=== PATIENT | male | born 1950 | race Caucasian/White ===

== ENCOUNTER → 2017-10-06 16:01 | Outpatient (CLI) | payer MEDICARE, BC | END | disposition home or self-care (01) | LOC: D.MRI 16:01 | DX: M54.5 Low back pain (principal) ==

== ENCOUNTER → 2019-12-08 09:47 | Outpatient (CLI) | payer MEDICARE, BC | END | disposition home or self-care (01) | LOC: D.NM 09:47 | PROVIDERS: ATTEND Family Medicine | DX: E21.3 Hyperparathyroidism, unspecified (principal) ==

== ENCOUNTER → 2020-01-10 13:10 | Outpatient (CLI) | payer MEDICARE, BC | END | disposition home or self-care (01) | LOC: D.US 13:00 | PROVIDERS: ATTEND Surgery | DX: E21.3 Hyperparathyroidism, unspecified (principal) ==

== ENCOUNTER 2020-01-26 06:23 | Day surgery (SDC) | payer MEDICARE, BC ==
[~2020-01-26] VITALS: Ht 182.9 cm; Wt 93.9 kg
[~2020-01-26 06:23] MED LIST: LOSARTAN-HCTZ1 EAC1 PO; TOPROL XL100 MG PO; ZOCOR40 MG PO
[2020-01-26 06:58] LABS: BASOPHILS 0.3 % (0-2); EOSINOPHILS 2.7 % (0-7); HEMATOCRIT 42.4 % (42.0-54.0); HEMOGLOBIN 13.9 g/dL (13.5-17.5); IMMATURE GRANULOCYTES 0.1 % (0-5); LYMPHOCYTES 33.6 % (15-50); MCH 31.6 pg (26.0-34.0); MCHC 32.8 g/dL (31.0-37.0); MCV 96.4 fL (80.0-100.0); MEAN PLATELET VOLUME 9.6 fL (7.4-10.4); MONOCYTES 8.7 % (2-11); NEUTROPHILS 54.6 % (40-80); PLATELET COUNT 219 10x3/uL (130-400); RDW 12.4 % (11.5-14.5); WBC 7.2 10x3/uL (4.8-10.8)
[2020-01-26 07:27] LABS: CALCIUM 10.7 mg/dL (8.5-10.1); CARBON DIOXIDE 27.7 mmol/L (21.0-32.0); CREATININE - SERUM 1.2 mg/dL (0.6-1.3); POTASSIUM - SERUM 3.7 mmol/L (3.5-5.1)
[2020-01-26 08:08] VITALS: BP 156/77; Ht 182.9 cm; Wt 93.9 kg
[2020-01-26] MEDS ORDERED: HYDROCODON-ACE1 EA10 PO (11:05)
--- NOTE | 2020-01-26 13:46 | NUR ---
1235 IV REMOVED AND PRESSURE HELD INSTRUCTIONS GIVEN. NO SWELLING TO NECK. PAIN EASING
--- NOTE | 2020-01-31 09:49 | OP ---
PATIENT NAME: ABEL FERMIN MEDICAL RECORD: [id number] :46 LOCATION:D[facility] ADMISSION DATE: SURGEON: OLLIE COON MD DATE OF OPERATION: 01/26/2020 PREOPERATIVE DIAGNOSES: 1. Hyperparathyroidism. 2. 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 3. Right lower parathyroid adenoma. 4. Hypertension. 5. Hypercholesterolemia. POSTOPERATIVE DIAGNOSES: 1. Hyperparathyroidism. 2. 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 3. Right lower parathyroid adenoma. 4. Hypertension. 5. Hypercholesterolemia. PROCEDURE: Right inferior parathyroid adenectomy. SURGEON: Ollie Coon MD REPORT OF PROCEDURE: The patient's neck was prepped and draped in sterile fashion. A transverse incision was made through a fold in the neck and electrocautery was used to dissect through the subcutaneous tissues and platysma. We dissected down to the patient's strap musculature and opened up the median raphae. We went to the right side of the neck and was able to elevate the tissues off of the anterior aspect of the thyroid. As we looked inferiorly, there were some vessels present and we had to get these out of the way because there was a large mass present posterior to these. These small vessels were tied off with 3-0 silk ties. We could then approach this mass, which was lying under some surrounding connective tissue. The mass was completely excised and measured about 2 cm in length. Once this mass was excised, the base of it was tied off with 3-0 silk. We sent it off for frozen specimen and it did show that there was an enlarged parathyroid gland. I rotated the thyroid medially and was able to look on the superior aspect of the posterior thyroid and I did not see any evidence of any enlarged glands or tissues present. At this point, we irrigated out the wound with normal saline and assured there was no sign of any bleeding. Gelfoam soaked in thrombin was placed in the surrounding tissues and then the strap muscles were reapproximated with interrupted 2-0 Vicryls. The platysma was reapproximated with interrupted 3-0 Vicryls. A 8 mL 0.25% Marcaine with epinephrine was infused into the surrounding tissues and the skin was closed with running subcutaneous 5-0 Monocryl. COMPLICATIONS: None. CONDITION: Stable. ANESTHESIA: General endotracheal and local. BLOOD LOSS: Minimal. TRANSINT:[id number] Voice Confirmation ID: [id number] DOCUMENT ID: [id number] OPERATIVE REPORT [id number] ABEL FERMIN CHRISTIAN MD at 0949 CC: DEBORA VU [id number] DICTATION DATE: 01/26/20 1110 MEMS PROCESS ENGINEER: 01/26/20 1320 [facility] 01/26/20 [facility] [address] [id number]
== END 2020-01-26 13:00 | disposition home or self-care (01) ==
LOC: D.OPS 06:23 → D.PAN 09:45 → D.OPS 13:00
PROVIDERS: ATTEND Surgery
DX: E21.3 Hyperparathyroidism, unspecified (principal); E21.1 Secondary hyperparathyroidism, not elsewhere classified; E21.5 Disorder of parathyroid gland, unspecified; I10 Essential (primary) hypertension; E78.00 Pure hypercholesterolemia, unspecified; E05.90 Thyrotoxicosis, unspecified without thyrotoxic crisis or storm

== ENCOUNTER → 2020-10-19 11:14 | Outpatient (CLI) | payer MEDICARE, BC ==
[2020-01-26 08:08] VITALS: BMI 28.1
[~2020-10-19 11:14] MED LIST changes: +HYDROCODON-ACE1 EA10 PO
== END | disposition home or self-care (01) ==
LOC: D.MRI 11:14
PROVIDERS: ATTEND Family Medicine
DX: M25.562 Pain in left knee (principal)